=== PATIENT | male | born 1965 | race Caucasian/White ===

== ENCOUNTER 2017-06-23 16:55 | Observation (INO) | payer BC ==
[2017-06-23] MEDS ORDERED: Nitroglycerin 0.4 MG Tab.SL SL ONE (17:04)
[2017-06-23] MEDS ORDERED: Sodium Chloride 0.9% 10 ML Syringe FLUSH PRN (17:04)
[2017-06-23] MEDS ORDERED: Sodium Chloride 0.9% 2.5 ML Syringe FLUSH PRN (17:04)
[2017-06-23] MEDS ORDERED: Aspirin 81 MG Tab.Chew PO ONE (17:04)
--- NOTE | 2017-06-23 17:24 | EDM.PDOC ---
ED HPI GENERAL MEDICAL PROBLEM - General Chief Complaint: Chest Pain Stated Complaint: CHEST PAIN/RT ARM NUMB Time Seen by Provider: 06/23/17 17:12 Source of Information: Reports: Patient History Limitations: Reports: No Limitations - History of Present Illness INITIAL COMMENTS - FREE TEXT/NARRATIVE: HISTORY AND PHYSICAL: History of present illness: [Patient comes to the emergency room complaining of pain in his left chest, neck and shoulder. Started around 2:30pm today when he was doing chores. He describes it as an aching and a pressure sensation in his chest. Pain radiates into his left neck and shoulder, and comes and goes.. Was 3/10 when it started and is now 1/10 on the pain scale. Has a history of type 2 diabetes and CHF. He takes his medications regularly. Was ill with an upper respiratory infection about 2 weeks ago and was prescribed a Zithromax Z-Reynold and albuterol inhaler. He feels as though these symptoms have improved significantly. He's been using his albuterol inhaler regularly but is not helping his current symptoms. He's noticed a 22 pound weight gain over the past 3 weeks which he cannot attribute diet. He's noticed most of his weight gain in his abdomen. No fever or chills. Has heard a wheezing sound in his chest. He's had coughing recently with white to yellow colored sputum. No abdominal pain change in his appetite nausea or vomiting. No constipation or diarrhea. He is otherwise feeling well. He smokes 7-8 cigarettes per day and has for many years. Review of systems: As per history of present illness and below otherwise all systems reviewed and negative. Past medical history: As per history of present illness and as reviewed below otherwise noncontributory. Surgical history: As per history of present illness and as reviewed below otherwise noncontributory. Social history: No reported history of drug or alcohol abuse. Family history: As per history of present illness and as reviewed below otherwise noncontributory. Physical exam: Gen.: Well-developed well-nourished male in no acute distress. Vital signs are reviewed by me. O2 sat 88% on room air. Improves with 2 L per nasal cannula. HEENT: Atraumatic, normocephalic. Oral mucous membranes are pink and moist. PERRLA. Lungs: Wheezing and rales heard throughout anterior and posterior lower lung bases. breath sounds equal bilaterally. Heart: S1S2, regular rate and rhythm. No S3. No clicks, rubs, murmurs. Abdomen: Abdomen is distended. Bowel sounds are normoactive throughout. Soft, nontender. Negative for masses, guarding or rebound. Negative for costovertebral tenderness. Pelvis: Stable nontender. Genitourinary: Deferred. Rectal: Deferred. Extremities: Atraumatic, no significant ankle or lower leg edema. No calf pain. Neurovascular unremarkable. Neuro: Awake, alert, oriented. Motor and sensory unremarkable throughout. Exam nonfocal. Diagnostics: [CBC, CMP, BNP, urinalysis, troponin, INR/PTT/PT, EKG] Therapeutics: [Nitroglycerin 0.4 mg 1, aspirin 324 mg by mouth] Impression: [Chest pain] Plan: [Chest x-ray shows no abnormalities. BNP is 81. Troponin is normal. EKG shows bigeminy. His chest pain resolves with one tablet of nitroglycerin. Patient's condition is discussed with Dr. Vincenzo Glass who agrees to accept patient for observation and chest pain work up. ] Definitive disposition and diagnosis as appropriate pending reevaluation and review of above. chest Pain Score (Numeric/FACES): 3 - Related Data Allergies Allergy/AdvReac Type Severity Reaction Status Date / Time No Known Allergies Allergy Verified 06/23/17 17:09 Home Meds: Home Meds Canagliflozin [Invokana] 300 mg PO DAILY 11/15/15 [History] Furosemide [Lasix] 40 mg PO DAILY 11/15/15 [History] Glimepiride [Amaryl] 2 mg PO DAILY 11/15/15 [History] Lisinopril [Prinivil] 20 mg PO DAILY 11/15/15 [History] Simvastatin [Zocor] 20 mg PO ONETIME 11/15/15 [History] Spironolactone [Aldactone] 25 mg PO DAILY 11/15/15 [History] metFORMIN HCl [Metformin HCl] 500 mg PO BID 11/15/15 [History] Exenatide Microspheres [Bydureon] 06/23/17 [History] Past Medical History HEENT History: Reports: Impaired Vision Cardiovascular History: Reports: High Cholesterol, Heart Failure, Hypertension, [place] Respiratory History: Reports: None Gastrointestinal History: Reports: None Genitourinary History: Reports: None Musculoskeletal History: Reports: None Neurological History: Reports: None Psychiatric History: Reports: None Endocrine/Metabolic History: Reports: Diabetes, Type II, Obesity/BMI 30+ Hematologic History: Reports: None Immunologic History: Reports: None Oncologic (Cancer) History: Reports: None Dermatologic History: Reports: None - Infectious Disease History Infectious Disease History: Reports: None - Past Surgical History Male Surgical History: Reports: Penile Surgery Musculoskeletal Surgical History: Reports: Arthroscopic Knee Social & Family History - Family History Family Medical History: Noncontributory - Tobacco Use Smoking Status *Q: Current Every Day Smoker Years of Tobacco use: 30 Packs/Tins Daily: 1 - Recreational Drug Use Recreational Drug Use: No ED ROS GENERAL - Review of Systems Review Of Systems: ROS reveals no pertinent complaints other than HPI. ED EXAM, GENERAL - Physical Exam Exam: See Below Course - Vital Signs Last Recorded V/S: Last Vital Signs Temp 98.9 F 06/23/17 19:07 Pulse 49 L 06/23/17 19:07 Resp 18 06/23/17 19:07 BP 139/68 06/23/17 19:07 Pulse Ox 93 L 06/23/17 19:07 - Orders/Labs/Meds Orders: Active Orders 24 hr Category Date Time Status Patient Status [ADT] Stat ADT 06/23/17 18:35 Active Chest 1V Frontal [CR] Stat Exams 06/23/17 17:04 Taken Sodium Chloride 0.9% [Saline Flush] Med 06/23/17 17:04 Active 10 ml FLUSH ASDIRECTED PRN Sodium Chloride 0.9% [Saline Flush] Med 06/23/17 17:04 Active 2.5 ml FLUSH ASDIRECTED PRN Saline Lock Insert [OM.PC] Stat Oth 06/23/17 17:04 Ordered Medication Orders Sodium Chloride (Saline Flush) 10 ml FLUSH ASDIRECTED PRN PRN Reason: Keep Vein Open Last Admin: 06/23/17 17:12 Dose: 10 ml Sodium Chloride (Saline Flush) 2.5 ml FLUSH ASDIRECTED PRN PRN Reason: Keep Vein Open Last Admin: 06/23/17 17:12 Dose: 2.5 ml Labs: Laboratory Tests 06/23/17 06/23/17 06/23/17 Range/Units 17:03 17:03 17:03 WBC 8.37 (4.0-11.0) K/uL RBC 5.28 (4.50-5.90) M/uL Hgb 16.9 (13.0-17.0) g/dL Hct 52.0 H (38.0-50.0) % MCV 98.5 H (80.0-98.0) fL MCH 32.0 (27.0-32.0) pg MCHC 32.5 (31.0-37.0) g/dL RDW Std Deviation 50.0 (28.0-62.0) fl RDW Coeff of Sally 14 (11.0-15.0) % Plt Count 168 (150-400) K/uL MPV 9.70 (7.40-12.00) fL Neut % (Auto) 54.8 (48.0-80.0) % Lymph % (Auto) 33.2 (16.0-40.0) % Jerome % (Auto) 9.0 (0.0-15.0) % Eos % (Auto) 2.4 (0.0-7.0) % Baso % (Auto) 0.6 (0.0-1.5) % Neut # (Auto) 4.6 (1.4-5.7) K/uL Lymph # (Auto) 2.8 H (0.6-2.4) K/uL Jerome # (Auto) 0.8 (0.0-0.8) K/uL Eos # (Auto) 0.2 (0.0-0.7) K/uL Baso # (Auto) 0.1 (0.0-0.1) K/uL Nucleated RBC % 0.0 /100WBC Nucleated RBCs # 0 K/uL INR 0.93 (0.86-1.11) Sodium 137 (136-146) mmol/L Potassium 4.5 (3.5-5.1) mmol/L Chloride 98 (98-110) mmol/L Carbon Dioxide 26 (21-31) mmol/L BUN 22 (6.0-23.0) mg/dL Creatinine 1.0 (0.6-1.5) mg/dL Est Cr Clr Drug Dosing 90.24 mL/min Estimated GFR (MDRD) > 60.0 ml/min Glucose 212 H (60-110) mg/dL Calcium 9.1 (8.8-10.8) mg/dL Total Bilirubin 0.3 (0.1-1.5) mg/dL AST 23 (5-40) IU/L ALT 33 (8-54) IU/L Alkaline Phosphatase 56 (40-150) Troponin I < 0.10 (0.0-0.29) NG/ML B-Natriuretic Peptide (<100) PG/ML Total Protein 7.2 (6.0-8.0) g/dL Albumin 4.1 (3.5-5.0) g/dL Globulin 3.1 (2.0-3.5) g/dL Albumin/Globulin Ratio 1.3 (1.3-2.8) Urine Color Urine Appearance Urine pH (5.0-8.0) Ur Specific [place] (1.001-1.035) Urine Protein (NEGATIVE) mg/dL Urine Glucose (UA) (NEGATIVE) mg/dL Urine Ketones (NEGATIVE) mg/dL Urine Occult Blood (NEGATIVE) Urine Nitrite (NEGATIVE) Urine Bilirubin (NEGATIVE) Urine Urobilinogen (<2.0) EU/dL Ur Leukocyte Esterase (NEGATIVE) Urine RBC (0-2/HPF) Urine WBC (0-5/HPF) Ur Epithelial Cells (NONE-FEW) Urine Bacteria (NEGATIVE) 06/23/17 06/23/17 Range/Units 17:03 17:50 WBC (4.0-11.0) K/uL RBC (4.50-5.90) M/uL Hgb (13.0-17.0) g/dL Hct (38.0-50.0) % MCV (80.0-98.0) fL MCH (27.0-32.0) pg MCHC (31.0-37.0) g/dL RDW Std Deviation (28.0-62.0) fl RDW Coeff of Sally (11.0-15.0) % Plt Count (150-400) K/uL MPV (7.40-12.00) fL Neut % (Auto) (48.0-80.0) % Lymph % (Auto) (16.0-40.0) % Jerome % (Auto) (0.0-15.0) % Eos % (Auto) (0.0-7.0) % Baso % (Auto) (0.0-1.5) % Neut # (Auto) (1.4-5.7) K/uL Lymph # (Auto) (0.6-2.4) K/uL Jerome # (Auto) (0.0-0.8) K/uL Eos # (Auto) (0.0-0.7) K/uL Baso # (Auto) (0.0-0.1) K/uL Nucleated RBC % /100WBC Nucleated RBCs # K/uL INR (0.86-1.11) Sodium (136-146) mmol/L Potassium (3.5-5.1) mmol/L Chloride (98-110) mmol/L Carbon Dioxide (21-31) mmol/L BUN (6.0-23.0) mg/dL Creatinine (0.6-1.5) mg/dL Est Cr Clr Drug Dosing mL/min Estimated GFR (MDRD) ml/min Glucose (60-110) mg/dL Calcium (8.8-10.8) mg/dL Total Bilirubin (0.1-1.5) mg/dL AST (5-40) IU/L ALT (8-54) IU/L Alkaline Phosphatase (40-150) Troponin I (0.0-0.29) NG/ML B-Natriuretic Peptide 81 (<100) PG/ML Total Protein (6.0-8.0) g/dL Albumin (3.5-5.0) g/dL Globulin (2.0-3.5) g/dL Albumin/Globulin Ratio (1.3-2.8) Urine Color YELLOW Urine Appearance CLEAR Urine pH 6.0 (5.0-8.0) Ur Specific [place] 1.015 (1.001-1.035) Urine Protein NEGATIVE (NEGATIVE) mg/dL Urine Glucose (UA) >=1000 (NEGATIVE) mg/dL Urine Ketones NEGATIVE (NEGATIVE) mg/dL Urine Occult Blood NEGATIVE (NEGATIVE) Urine Nitrite NEGATIVE (NEGATIVE) Urine Bilirubin NEGATIVE (NEGATIVE) Urine Urobilinogen 0.2 (<2.0) EU/dL Ur Leukocyte Esterase NEGATIVE (NEGATIVE) Urine RBC NONE SEEN (0-2/HPF) Urine WBC NONE SEEN (0-5/HPF) Ur Epithelial Cells NOT SEEN (NONE-FEW) Urine Bacteria RARE (NEGATIVE) Meds: Medications Generic Name Dose Route Start Last Admin Trade Name Marquise PRN Reason Stop Dose Admin Sodium Chloride 10 ml 06/23/17 17:04 06/23/17 17:12 Saline Flush FLUSH 10 ml ASDIRECTED PRN Administration Keep Vein Open Sodium Chloride 2.5 ml 06/23/17 17:04 06/23/17 17:12 Saline Flush FLUSH 2.5 ml ASDIRECTED PRN Administration Keep Vein Open Discontinued Medications Generic Name Dose Route Start Last Admin Trade Name Marquise PRN Reason Stop Dose Admin Aspirin 324 mg 06/23/17 17:04 06/23/17 17:12 Aspirin PO 06/23/17 17:05 324 mg ONETIME ONE Administration Furosemide 40 mg 06/23/17 18:35 06/23/17 18:41 Lasix IVPUSH 06/23/17 18:36 40 mg NOW ONE Administration Nitroglycerin 0.4 mg 06/23/17 17:04 06/23/17 17:11 Nitrostat SL 06/23/17 17:05 0.4 mg ONETIME ONE Administration Departure - Departure Time of Disposition: 18:35 Disposition: Refer to Observation Condition: Good Clinical Impression: Chest pain - My Orders Last 24 Hours: My Active Orders 06/23/17 17:04 Chest 1V Frontal [CR] Stat Sodium Chloride 0.9% [Saline Flush] 10 ml FLUSH ASDIRECTED PRN Sodium Chloride 0.9% [Saline Flush] 2.5 ml FLUSH ASDIRECTED PRN Saline Lock Insert [OM.PC] Stat 06/23/17 18:35 Patient Status [ADT] Stat - Assessment/Plan Last 24 Hours: My Active Orders 06/23/17 17:04 Chest 1V Frontal [CR] Stat Sodium Chloride 0.9% [Saline Flush] 10 ml FLUSH ASDIRECTED PRN Sodium Chloride 0.9% [Saline Flush] 2.5 ml FLUSH ASDIRECTED PRN Saline Lock Insert [OM.PC] Stat 06/23/17 18:35 Patient Status [ADT] Stat
[2017-06-23 17:52] LABS: CHLORIDE,CL 98 mmol/L (98-110); SODIUM,NA 137 mmol/L (136-146)
[2017-06-23] MEDS ORDERED: Furosemide 40 MG/4 ML VIAL IVPUSH ONE (18:35)
[2017-06-23] MEDS ORDERED: Morphine 2 MG/ML Syringe IVPUSH PRN (21:30)
[2017-06-23] MEDS ORDERED: Acetaminophen 325 MG Tab PO PRN (21:31)
--- NOTE | 2017-06-23 23:26 | PCM.HP ---
H&P History of Present Illness - History of Present Illness Initial Comments - Free Text/Narative: 51 yo male who presents with a week history of shortness of breath, cough productive of white sputum, orthopnea and a 22 lb weight gain. Patient feels bloated in the abdomen but has been alternating between diarrhea and constipation. He was treated for respiratory infection last week with azithromycin. He denies any fevers or chills. Today he reported chest pressure. He has a history of CHF and the symptoms he is experiencing now is how he felt when he was first diagnosed with CHF. He reported chest pressure that radiated to his arm which lasted all day today but has resolved since admission. chest Pain Score (Numeric/FACES): 3 - Related Data Allergies/Adverse Reactions: Allergies Allergy/AdvReac Type Severity Reaction Status Date / Time No Known Allergies Allergy Verified 06/23/17 21:48 Home Medications: Home Meds Canagliflozin [Invokana] 300 mg PO DAILY 11/15/15 [History] Glimepiride [Amaryl] 2 mg PO BID 11/15/15 [History] Lisinopril [Prinivil] 20 mg PO DAILY 11/15/15 [History] Simvastatin [Zocor] 20 mg PO DAILY 11/15/15 [History] Spironolactone [Aldactone] 25 mg PO DAILY 11/15/15 [History] metFORMIN HCl [Metformin HCl] 500 mg PO BID 11/15/15 [History] Exenatide Microspheres [Bydureon] 06/23/17 [History] Furosemide [Lasix] 40 mg PO BID #0 tablet 06/24/17 [Rx] Past Medical History HEENT History: Reports: Impaired Vision Cardiovascular History: Reports: High Cholesterol, Heart Failure, Hypertension, [place] Respiratory History: Reports: None Gastrointestinal History: Reports: None Genitourinary History: Reports: None Musculoskeletal History: Reports: None Neurological History: Reports: None Psychiatric History: Reports: None Endocrine/Metabolic History: Reports: Diabetes, Type II, Obesity/BMI 30+ Hematologic History: Reports: None Immunologic History: Reports: None Oncologic (Cancer) History: Reports: None Dermatologic History: Reports: None - Infectious Disease History Infectious Disease History: Reports: None - Past Surgical History Male Surgical History: Reports: Penile Surgery Musculoskeletal Surgical History: Reports: Arthroscopic Knee Social & Family History - Family History Family Medical History: Noncontributory - Tobacco Use Smoking Status *Q: Current Every Day Smoker Years of Tobacco use: 30 Packs/Tins Daily: 1 - Recreational Drug Use Recreational Drug Use: No H&P Review of Systems - Review of Systems: Review Of Systems: ROS reveals no pertinent complaints other than HPI. Exam - Exam Exam: See Below - Vital Signs Vital Signs: Last Vital Signs Temp 37.2 C 06/23/17 19:07 Pulse 49 L 06/23/17 19:07 Resp 18 06/23/17 19:07 BP 139/68 06/23/17 19:07 Pulse Ox 93 L 06/23/17 19:07 Weight: 122.198 kg - Exam General: Alert, Oriented HEENT: Mucosa Moist & [place] Neck: JVD Lungs: Clear to Auscultation, Normal Respiratory Effort Cardiovascular: Regular Rate, Regular Rhythm GI/Abdominal Exam: Soft, Non-Tender Extremities: No Pedal Edema Skin: Warm, Dry, Intact - Patient Data Result Diagrams: 06/24/17 05:00 06/24/17 05:00 *Q Meaningful Use (ADM) - VTE *Q VTE Criteria *Q: - Stroke *Q Stroke Criteria *Q: - AMI *Q AMI Criteria *Q: Problem List Initiated/Reviewed/Updated: Yes Orders Last 24hrs: Active Orders 24 hr Category Date Time Status Blood Glucose Check, Bedside [RC] TIDAC Care 06/24/17 07:00 Active Telemetry Monitoring [Cardiac Monitoring] [RC] . Care 06/23/17 19:20 Active DIRECTED [place] [employer] Diet [DIET] Diet 06/24/17 Breakfast Active TROPONIN I [CHEM] Q6H Lab 06/23/17 22:51 Received TROPONIN I [CHEM] Q6H Lab 06/24/17 05:00 Ordered Acetaminophen [Tylenol] Med 06/23/17 21:31 Active 650 mg PO Q6H PRN Canagliflozin [Invokana] Med 06/24/17 09:00 Active 300 mg PO DAILY Furosemide [Lasix] Med 06/24/17 09:00 Active 40 mg PO DAILY Glimepiride [Amaryl] Med 06/24/17 08:00 Active 2 mg PO BIDMEALS Insulin Aspart [NovoLOG] Med 06/24/17 07:30 Active See Protocol SUBCUT TIDAC Lisinopril [Prinivil] Med 06/24/17 09:00 Active 20 mg PO DAILY Morphine Med 06/23/17 21:30 Active 2 mg IVPUSH Q3H PRN Simvastatin [Zocor] Med 06/24/17 21:00 Active 20 mg PO DAILY Spironolactone [Aldactone] Med 06/24/17 09:00 Active 25 mg PO DAILY metFORMIN [Glucophage] Med 06/24/17 08:00 Active 500 mg PO BIDMEALS Medication Orders Acetaminophen (Tylenol) 650 mg PO Q6H PRN PRN Reason: Pain Furosemide (Lasix) 40 mg PO DAILY [facility] Glimepiride (Amaryl) 2 mg PO BIDMEALS [facility] Insulin Aspart (Novolog) 0 unit SUBCUT TIDAC [facility] PRN Reason: Protocol Lisinopril (Prinivil) 20 mg PO DAILY [facility] Metformin HCl (Glucophage) 500 mg PO BIDMEALS [facility] Morphine Sulfate (Morphine) 2 mg IVPUSH Q3H PRN PRN Reason: Pain (severe 7-10) Non-Formulary Medication (Canagliflozin [Invokana]) 300 mg PO DAILY [facility] Simvastatin (Zocor) 20 mg PO DAILY [facility] Sodium Chloride (Saline Flush) 10 ml FLUSH ASDIRECTED PRN PRN Reason: Keep Vein Open Last Admin: 06/23/17 17:12 Dose: 10 ml Sodium Chloride (Saline Flush) 2.5 ml FLUSH ASDIRECTED PRN PRN Reason: Keep Vein Open Last Admin: 06/23/17 17:12 Dose: 2.5 ml Spironolactone (Aldactone) 25 mg PO DAILY [facility] Assessment/Plan Comment:: 51 yo male admitted with CHF exacerbation. He ruled out for acute coronary syndrome with seral negative cardiac enzymes. He was watched overnight on telemetry with no events. He was given 40mg IV of lasix with improvement of his breath. This morning he is satting 91% on room air and is requesting discharge home. He was advised to increase his lasix to 40 BID dosing for the next week and to follow up with Dr. Ovalles regarding treatment of his congestive heart failure and need for repeat echocardiogram.
[2017-06-24] MEDS ORDERED: FLU Vacc QS 2017-18 (36mos UP)/PF 60 MCG/0.5 ML Syringe IM ONE (00:15)
[2017-06-24 06:08] LABS: CHLORIDE,CL 96 mmol/L (98-110); SODIUM,NA 139 mmol/L (136-146)
[2017-06-24] MEDS: Insulin Aspart 100 Units/ML 3 ML Pen SUBCUT SCH ×2 (06:47→13:11)
[2017-06-24] MEDS ORDERED: metFORMIN 500 MG Tab PO SCH (08:00)
[2017-06-24] MEDS ORDERED: Glimepiride 2 MG Tab PO SCH (08:00)
[2017-06-24] MEDS ORDERED: Non-Formulary Medication 1 Each (Metformin Hcl [Metformin Hcl] 500 MG) PO SCH (08:00)
[2017-06-24] MEDS ORDERED: Enoxaparin 40 MG/0.4 ML Syringe SUBCUT SCH (09:00)
[2017-06-24] MEDS ORDERED: Lisinopril 10 MG Tab PO SCH ×2 (09:00)
[2017-06-24] MEDS ORDERED: Spironolactone 25 MG Tab PO SCH (09:00)
[2017-06-24] MEDS ORDERED: Furosemide 40 MG Tab PO SCH (09:00)
[2017-06-24] MEDS ORDERED: Non-Formulary Medication 1 Each (Canagliflozin [Invokana] 300 MG) PO SCH (09:00)
[2017-06-24 12:06] VITALS: BP 112/71
[2017-06-24] MEDS ORDERED: Simvastatin 20 MG Tab PO SCH (21:00)
--- NOTE | 2017-06-25 18:19 | CR ---
EXAM DATE: 06/23/17 PATIENT'S AGE: 51 Patient: FREYA TEJEDA Facility: [place], [place] Site . Site : [id number] Study: XRay Chest [id number]/[id number] 5:35:42 PM Ordering Physician: Doctor Oliveira Final Report: HISTORY: Chest pain. TECHNIQUE: Portable frontal view of the chest. COMPARISON: Chest x-ray 08/06/2015. FINDINGS: No airspace consolidation. No pleural effusion or pneumothorax. Pulmonary vasculature is within normal limits. Cardiomediastinal silhouette is within normal limits for technique. IMPRESSION: No acute findings. Dictated by Bradley Rosario MD @ Jun 23 2017 5:59PM (Electronic Signature) Report Signed by Proxy. CHESTER
== END 2017-06-24 15:45 | disposition home or self-care (01) ==
LOC: MW.ED 16:55 → MW.MS 18:59
PROVIDERS: ADMIT Internal Medicine; ATTEND Internal Medicine
DX: I11.0 Hypertensive heart disease with heart failure (principal); I50.9 Heart failure, unspecified; E78.00 Pure hypercholesterolemia, unspecified; I25.2 Old myocardial infarction; E11.9 Type 2 diabetes mellitus without complications; E66.9 Obesity, unspecified; F17.210 Nicotine dependence, cigarettes, uncomplicated; Z79.899 Other long term (current) drug therapy; Z79.84 Long term (current) use of oral hypoglycemic drugs; Z68.30 Body mass index [BMI] 30.0-30.9, adult
CPT/HCPCS: 36415; 71045; 80048; 80053; 81001; 82962; 83880; 84484; 85025; 85027; 85610; 87804; 90686; 93005; 96374; 99285; A9270; J1650; J1940; 96372; 99284; G0008; G0378

== ENCOUNTER 2018-10-31 14:57 | Inpatient (IN) | payer BC ==
--- NOTE | 2018-10-31 15:30 | CR ---
EXAMINATION: Two-view chest (PA and Lateral views). HISTORY: Failure. FINDINGS: The trachea is midline. The cardiomediastinal silhouette is within normal limits. There is a subtle miliary nodular appearance bilaterally. No focal consolidation or pleural effusion. Osseous structures appear unremarkable. IMPRESSION: 1. Subtle miliary nodular appearance bilaterally. May be the result of previous varicella/viral pneumonia versus other atypical miliary infection.
[2018-10-31 15:51] LABS: CHLORIDE,CL 84 mmol/L (98-107); SODIUM,NA 126 mmol/L (136-148)
--- NOTE | 2018-10-31 17:40 | PCM.HP ---
H&P History of Present Illness - General Date of Service: 10/31/18 Admit Problem/Dx: Hyperglycemia, hypoxemia Source of Information: Patient History Limitations: Reports: No Limitations - History of Present Illness Initial Comments - Free Text/Narative: The patient is a 52-year-old gentleman who had been admitted to direct hospitalization from his primary care physician office. Out of concern for worsening blood sugars. Patient has had type 2 diabetes and has been on oral medications for at least 10 years. The patient reports that he has had increasing fatigue. Patient also further reports that he has been having increasing dryness of his mouth and increasing urination. The patient also has a history of hypoxemia and hypertension. Upon presentation the patient was noted to be hypoxic at 84% well on room air. The patient says that he has had increasing shortness of breath as well. The patient has been an issue she'll state of health. Onset of Symptoms: Reports: Gradual Duration of Symptoms: Reports: Day(s): Location: Reports: Chest Severity: Mild Improves with: Reports: None Worsens with: Reports: None Associated Symptoms: Denies: Cough - Related Data Allergies/Adverse Reactions: Allergies Allergy/AdvReac Type Severity Reaction Status Date / Time No Known Allergies Allergy Verified 06/23/17 21:48 Home Medications: Home Meds Glimepiride [Amaryl] 2 mg PO BID 11/15/15 [History] Lisinopril [Prinivil] 20 mg PO DAILY 11/15/15 [History] Simvastatin [Zocor] 20 mg PO BEDTIME 11/15/15 [History] Spironolactone [Aldactone] 25 mg PO DAILY 11/15/15 [History] metFORMIN HCl [Metformin HCl] 1 tab PO BID 11/15/15 [History] Albuterol Sulfate [Proair Hfa] 1 puff INH Q4HR PRN 10/31/18 [History] Aspirin [Lo-Dose Aspirin EC] 81 mg PO DAILY 10/31/18 [History] Cyanocobalamin (Vitamin B-12) [Vitamin B-12] 1 tab PO DAILY 10/31/18 [History] Dulaglutide [Trulicity] 1.5 mg WEEKLY 10/31/18 [History] Furosemide [Lasix] 1 - 2 tab PO DAILY 10/31/18 [History] Past Medical History HEENT History: Reports: Impaired Vision Cardiovascular History: Reports: High Cholesterol, Heart Failure, Hypertension, [place] Respiratory History: Reports: Bronchitis, Recurrent, Pneumonia, Recurrent Gastrointestinal History: Reports: None Genitourinary History: Reports: None Musculoskeletal History: Reports: None Neurological History: Reports: None Psychiatric History: Reports: None Endocrine/Metabolic History: Reports: Diabetes, Type II, Obesity/BMI 30+ Hematologic History: Reports: None Immunologic History: Reports: None Oncologic (Cancer) History: Reports: None Dermatologic History: Reports: None - Infectious Disease History Infectious Disease History: Reports: None - Past Surgical History Head Surgeries/Procedures: Reports: None Respiratory Surgical History: Reports: None Male Surgical History: Reports: Penile Surgery Musculoskeletal Surgical History: Reports: Arthroscopic Knee, Shoulder Surgery Social & Family History - Family History Family Medical History: Noncontributory - Tobacco Use Smoking Status *Q: Never Smoker Second Hand Smoke Exposure: No - Caffeine Use Caffeine Use: Reports: Coffee - Recreational Drug Use Recreational Drug Use: No - Living Situation & Occupation Living situation: Reports: Occupation: Employed H&P Review of Systems - Review of Systems: Review Of Systems: See Below General: Reports: Weakness, Fatigue HEENT: Reports: No Symptoms Pulmonary: Reports: Shortness of Breath Cardiovascular: Reports: No Symptoms Gastrointestinal: Reports: No Symptoms Genitourinary: Reports: Frequency Musculoskeletal: Reports: Leg Pain Skin: Reports: No Symptoms Psychiatric: Reports: No Symptoms Neurological: Reports: No Symptoms Hematologic/Lymphatic: Reports: No Symptoms Immunologic: Reports: No Symptoms Exam - Exam Exam: See Below - Vital Signs Weight: 118.161 kg - Exam Quality Assessment: Supplemental Oxygen General: Alert (Obese), Oriented, Cooperative HEENT: Conjunctiva Clear, EACs Clear, EOMI (Heterochromia). No: Mucosa Moist & Catarina (Dry) Neck: Supple, Trachea Midline Lungs: Clear to Auscultation, Normal Respiratory Effort Cardiovascular: Regular Rate, Regular Rhythm GI/Abdominal Exam: Normal Bowel Sounds, Soft, No Distention. No: Guarding, Rigid, Rebound Back Exam: Normal Inspection, Full Range of Motion Extremities: Normal Inspection, Normal Range of Motion, No Pedal Edema Skin: Warm, Dry, Intact, Wound (Multiple bruises, wounds to lower legs.) Neurological: Cranial Nerves Intact Neuro Extensive - Mental Status: Alert, Oriented x3 Neuro Extensive - Motor, Sensory, Reflexes: CN II-XII Intact Psychiatric: Alert, Normal Affect, Normal Mood - Patient Data Lab Results Last 24 hrs: Laboratory Results - last 24 hr 10/31/18 10/31/18 10/31/18 Range/Units 15:07 15:07 15:07 WBC 10.41 (4.0-11.0) K/uL RBC 5.84 (4.50-5.90) M/uL Hgb 19.3 H (13.0-17.0) g/dL Hct 57.0 H (38.0-50.0) % MCV 97.6 (80.0-98.0) fL MCH 33.0 H (27.0-32.0) pg MCHC 33.9 (31.0-37.0) g/dL RDW Std Deviation 54.1 (28.0-62.0) fl RDW Coeff of Sally 15 (11.0-15.0) % Plt Count 160 (150-400) K/uL MPV 10.20 (7.40-12.00) fL Neut % (Auto) 71.4 (48.0-80.0) % Lymph % (Auto) 17.3 (16.0-40.0) % [place] % (Auto) 9.9 (0.0-15.0) % Eos % (Auto) 1.1 (0.0-7.0) % Baso % (Auto) 0.3 (0.0-1.5) % Neut # (Auto) 7.4 H (1.4-5.7) K/uL Lymph # (Auto) 1.8 (0.6-2.4) K/uL [place] # (Auto) 1.0 H (0.0-0.8) K/uL Eos # (Auto) 0.1 (0.0-0.7) K/uL Baso # (Auto) 0.0 (0.0-0.1) K/uL Nucleated RBC % 0.3 /100WBC Nucleated RBCs # 0 K/uL D-Dimer, Quantitative 0.43 (0.0-0.50) mg/L FEU Sodium 126 L (136-148) mmol/L Potassium 4.3 (3.5-5.1) mmol/L Chloride 84 L (98-107) mmol/L Carbon Dioxide 36.5 H (21.0-32.0) mmol/L BUN 40 H (7.0-18.0) mg/dL Creatinine 1.4 H (0.8-1.3) mg/dL Est Cr Clr Drug Dosing TNP Estimated GFR (MDRD) 53.2 ml/min Glucose 342 H (74-106) mg/dL Calcium 9.9 (8.5-10.1) mg/dL Total Bilirubin 0.8 (0.2-1.0) mg/dL AST 20 (15-37) IU/L ALT 56 (14-63) IU/L Alkaline Phosphatase 75 (46-116) U/L Troponin I < 0.050 (0.000-0.056) ng/mL B-Natriuretic Peptide (<100) PG/ML Total Protein 7.3 (6.4-8.2) g/dL Albumin 3.6 (3.4-5.0) g/dL Globulin 3.7 (2.6-4.0) g/dL Albumin/Globulin Ratio 1.0 (0.9-1.6) TSH 3rd Generation 1.70 (0.36-3.74) uIU/mL 10/31/18 Range/Units 15:07 WBC (4.0-11.0) K/uL RBC (4.50-5.90) M/uL Hgb (13.0-17.0) g/dL Hct (38.0-50.0) % MCV (80.0-98.0) fL MCH (27.0-32.0) pg MCHC (31.0-37.0) g/dL RDW Std Deviation (28.0-62.0) fl RDW Coeff of Sally (11.0-15.0) % Plt Count (150-400) K/uL MPV (7.40-12.00) fL Neut % (Auto) (48.0-80.0) % Lymph % (Auto) (16.0-40.0) % [place] % (Auto) (0.0-15.0) % Eos % (Auto) (0.0-7.0) % Baso % (Auto) (0.0-1.5) % Neut # (Auto) (1.4-5.7) K/uL Lymph # (Auto) (0.6-2.4) K/uL [place] # (Auto) (0.0-0.8) K/uL Eos # (Auto) (0.0-0.7) K/uL Baso # (Auto) (0.0-0.1) K/uL Nucleated RBC % /100WBC Nucleated RBCs # K/uL D-Dimer, Quantitative (0.0-0.50) mg/L FEU Sodium (136-148) mmol/L Potassium (3.5-5.1) mmol/L Chloride (98-107) mmol/L Carbon Dioxide (21.0-32.0) mmol/L BUN (7.0-18.0) mg/dL Creatinine (0.8-1.3) mg/dL Est Cr Clr Drug Dosing Estimated GFR (MDRD) ml/min Glucose (74-106) mg/dL Calcium (8.5-10.1) mg/dL Total Bilirubin (0.2-1.0) mg/dL AST (15-37) IU/L ALT (14-63) IU/L Alkaline Phosphatase (46-116) U/L Troponin I (0.000-0.056) ng/mL B-Natriuretic Peptide 127 H (<100) PG/ML Total Protein (6.4-8.2) g/dL Albumin (3.4-5.0) g/dL Globulin (2.6-4.0) g/dL Albumin/Globulin Ratio (0.9-1.6) TSH 3rd Generation (0.36-3.74) uIU/mL Result Diagrams: 10/31/18 15:07 10/31/18 15:07 - Problem List (1) Hypoxemia SNOMED Code(s): 009965738 ICD Code: R09.02 - HYPOXEMIA Status: Acute Priority: High Current Visit : Yes (2) Diabetes mellitus type 2, uncontrolled SNOMED Code(s): 127272992, 810528496 ICD Code: E11.65 - TYPE 2 DIABETES MELLITUS WITH HYPERGLYCEMIA Status: Chronic Priority: High Current Visit: Yes Qualifiers: Glycemic state: with hyperglycemia Qualified Code(s): E11.65 - Type 2 diabetes mellitus with hyperglycemia (3) Morbid obesity SNOMED Code(s): 563434427 ICD Code: E66.01 - MORBID (SEVERE) OBESITY DUE TO EXCESS CALORIES Status: Chronic Priority: Medium Current Visit: Yes (4) Hypoventilation associated with obesity SNOMED Code(s): 642538347 ICD Code: E66.2 - MORBID (SEVERE) OBESITY WITH ALVEOLAR HYPOVENTILATION Status: Chronic Priority: Medium Current Visit: Yes (5) Hypertension SNOMED Code(s): 67041773 ICD Code: I10 - ESSENTIAL (PRIMARY) HYPERTENSION Status: Chronic Priority : Medium Current Visit: Yes Qualifiers: Hypertension type: essential hypertension Qualified Code(s): I10 - Essential (primary) hypertension Problem List Initiated/Reviewed/Updated: Yes Orders Last 24hrs: Active Orders 24 hr Category Date Time Status EKG 12 Lead [EKG Documentation Completion] [RC] ROUTINE Care 10/31/18 16:03 Active Assessment/Plan Comment:: The patient is a 52-year-old gentleman who has essentially at this time uncontrolled diabetes. The patient has not responded according to his primary care physician to oral medications. I have referred the patient to chemical educator. The patient will also be kept on subcutaneous insulin while in hospital. The patient also had been noted to be hypoxic and this is likely in his case to be multifactorial. The patient will be kept on oxygen support to help keep his saturations above 92%. The patient will also be kept on appropriate ADA diet. He will be started on insulin sliding scale with Accu- Cheks before meals and at bedtime. The patient is currently on his home dose of Lasix. He'll have DVT prophylaxis with the use of heparin 5000 units subcutaneous every 8 hours. The patient will also be monitored for his hypertension and he has been started on his lisinopril 20 mg by mouth daily. The urinalysis is also been ordered. The patient does have minimally reduced EGFR at 53.2 mL/m. This will be monitored with repeat laboratory studies. The patient also has been encouraged to ambulate. Repeat laboratory studies have been ordered in the morning.
[2018-10-31] MEDS ORDERED: Albuterol 8 GM Inhaler INH PRN (17:44)
[2018-10-31] MEDS ORDERED: Albuterol/Ipratropium 3.0-0.5 MG/3 ML Neb Soln NEB PRN (18:13)
[2018-10-31] MEDS ORDERED: Ondansetron 4 MG Tab.DIS PO PRN (18:13)
[2018-10-31] MEDS ORDERED: Acetaminophen 325 MG Tab PO PRN (18:13)
[2018-10-31] MEDS ORDERED: oxyCODONE 5 MG Tab PO PRN (18:13)
[2018-10-31] MEDS ORDERED: Temazepam 15 MG Cap PO PRN (18:13)
[2018-10-31] MEDS: Sodium Chloride 0.9% 1,000 ML IV SCH (19:39)
[2018-10-31] MEDS: Heparin Sodium 5,000 Units/ML Vial SUBCUT SCH (19:39)
[2018-10-31] MEDS ORDERED: Insulin Aspart 100 Units/ML 3 ML Pen SUBCUT ONE (20:44)
[2018-10-31] MEDS: Glimepiride 2 MG Tab PO SCH (21:06)
[2018-10-31] MEDS: Simvastatin 20 MG Tab PO SCH (21:06)
[2018-11-01] MEDS: Heparin Sodium 5,000 Units/ML Vial SUBCUT SCH ×3 (02:17→18:22)
[2018-11-01] MEDS: Sodium Chloride 0.9% 1,000 ML IV SCH (03:35)
[2018-11-01 05:37] LABS: HEMOGLOBIN A1C 9.8 % (4.5-6.2)
[2018-11-01 05:46] LABS: CHLORIDE,CL 93 mmol/L (98-107); SODIUM,NA 133 mmol/L (136-148)
[2018-11-01] MEDS: Insulin Aspart 100 Units/ML 3 ML Pen SUBCUT SCH ×3 (07:57→17:36)
[2018-11-01] MEDS: Furosemide 40 MG Tab PO SCH (08:48)
[2018-11-01] MEDS ORDERED: Furosemide 40 MG/4 ML VIAL IVPUSH ONE ×2 (08:48→16:00)
[2018-11-01] MEDS: Glimepiride 2 MG Tab PO SCH ×2 (09:24→20:38)
[2018-11-01] MEDS: Lisinopril 10 MG Tab PO SCH (09:29)
--- NOTE | 2018-11-01 12:57 | PCM.PN ---
- General Info Date of Service: 11/01/18 Subjective Update: Endorses shortness of breath, frustrated with fluid overloaded status. No chest pain nausea or vomiting. Has no cough. - Review of Systems General: Reports: Other (see hpi) - Patient Data Vitals - Most Recent: Last Vital Signs Temp 36.1 C 11/01/18 07:15 Pulse 100 11/01/18 07:15 Resp 18 11/01/18 07:15 BP 114/72 11/01/18 09:29 Pulse Ox 93 L 11/01/18 07:15 Weight - Most Recent: 118.388 kg I&O - Last 24 Hours: Intake & Output 10/31/18 11/01/18 11/01/18 22:59 06:59 14:59 Intake Total 1599 Output Total 2050 Balance -451 Lab Results Last 24 Hours: Laboratory Results - last 24 hr 10/31/18 10/31/18 10/31/18 Range/Units 15:07 15:07 15:07 WBC 10.41 (4.0-11.0) K/uL RBC 5.84 (4.50-5.90) M/uL Hgb 19.3 H (13.0-17.0) g/dL Hct 57.0 H (38.0-50.0) % MCV 97.6 (80.0-98.0) fL MCH 33.0 H (27.0-32.0) pg MCHC 33.9 (31.0-37.0) g/dL RDW Std Deviation 54.1 (28.0-62.0) fl RDW Coeff of Sally 15 (11.0-15.0) % Plt Count 160 (150-400) K/uL MPV 10.20 (7.40-12.00) fL Neut % (Auto) 71.4 (48.0-80.0) % Lymph % (Auto) 17.3 (16.0-40.0) % [place] % (Auto) 9.9 (0.0-15.0) % Eos % (Auto) 1.1 (0.0-7.0) % Baso % (Auto) 0.3 (0.0-1.5) % Neut # (Auto) 7.4 H (1.4-5.7) K/uL Lymph # (Auto) 1.8 (0.6-2.4) K/uL [place] # (Auto) 1.0 H (0.0-0.8) K/uL Eos # (Auto) 0.1 (0.0-0.7) K/uL Baso # (Auto) 0.0 (0.0-0.1) K/uL Nucleated RBC % 0.3 /100WBC Nucleated RBCs # 0 K/uL D-Dimer, Quantitative 0.43 (0.0-0.50) mg/L FEU Sodium 126 L (136-148) mmol/L Potassium 4.3 (3.5-5.1) mmol/L Chloride 84 L (98-107) mmol/L Carbon Dioxide 36.5 H (21.0-32.0) mmol/L BUN 40 H (7.0-18.0) mg/dL Creatinine 1.4 H (0.8-1.3) mg/dL Est Cr Clr Drug Dosing TNP Estimated GFR (MDRD) 53.2 ml/min Glucose 342 H (74-106) mg/dL POC Glucose (60-110) mg/dL Hemoglobin A1c (4.5-6.2) % Calcium 9.9 (8.5-10.1) mg/dL Total Bilirubin 0.8 (0.2-1.0) mg/dL AST 20 (15-37) IU/L ALT 56 (14-63) IU/L Alkaline Phosphatase 75 (46-116) U/L Troponin I < 0.050 (0.000-0.056) ng/mL B-Natriuretic Peptide (<100) PG/ML Total Protein 7.3 (6.4-8.2) g/dL Albumin 3.6 (3.4-5.0) g/dL Globulin 3.7 (2.6-4.0) g/dL Albumin/Globulin Ratio 1.0 (0.9-1.6) TSH 3rd Generation 1.70 (0.36-3.74) uIU/mL Urine Color Urine Appearance Urine pH (5.0-8.0) Ur Specific [place] (1.001-1.035) Urine Protein (NEGATIVE) mg/dL Urine Glucose (UA) (NEGATIVE) mg/dL Urine Ketones (NEGATIVE) mg/dL Urine Occult Blood (NEGATIVE) Urine Nitrite (NEGATIVE) Urine Bilirubin (NEGATIVE) Urine Urobilinogen (<2.0) EU/dL Ur Leukocyte Esterase (NEGATIVE) Urine RBC (0-2/HPF) Urine WBC (0-5/HPF) Ur Epithelial Cells (NONE-FEW) Urine Bacteria (NEGATIVE) 10/31/18 10/31/18 10/31/18 Range/Units 15:07 17:33 20:41 WBC (4.0-11.0) K/uL RBC (4.50-5.90) M/uL Hgb (13.0-17.0) g/dL Hct (38.0-50.0) % MCV (80.0-98.0) fL MCH (27.0-32.0) pg MCHC (31.0-37.0) g/dL RDW Std Deviation (28.0-62.0) fl RDW Coeff of Sally (11.0-15.0) % Plt Count (150-400) K/uL MPV (7.40-12.00) fL Neut % (Auto) (48.0-80.0) % Lymph % (Auto) (16.0-40.0) % [place] % (Auto) (0.0-15.0) % Eos % (Auto) (0.0-7.0) % Baso % (Auto) (0.0-1.5) % Neut # (Auto) (1.4-5.7) K/uL Lymph # (Auto) (0.6-2.4) K/uL [place] # (Auto) (0.0-0.8) K/uL Eos # (Auto) (0.0-0.7) K/uL Baso # (Auto) (0.0-0.1) K/uL Nucleated RBC % /100WBC Nucleated RBCs # K/uL D-Dimer, Quantitative (0.0-0.50) mg/L FEU Sodium (136-148) mmol/L Potassium (3.5-5.1) mmol/L Chloride (98-107) mmol/L Carbon Dioxide (21.0-32.0) mmol/L BUN (7.0-18.0) mg/dL Creatinine (0.8-1.3) mg/dL Est Cr Clr Drug Dosing Estimated GFR (MDRD) ml/min Glucose (74-106) mg/dL POC Glucose 237 H 285 H (60-110) mg/dL Hemoglobin A1c (4.5-6.2) % Calcium (8.5-10.1) mg/dL Total Bilirubin (0.2-1.0) mg/dL AST (15-37) IU/L ALT (14-63) IU/L Alkaline Phosphatase (46-116) U/L Troponin I (0.000-0.056) ng/mL B-Natriuretic Peptide 127 H (<100) PG/ML Total Protein (6.4-8.2) g/dL Albumin (3.4-5.0) g/dL Globulin (2.6-4.0) g/dL Albumin/Globulin Ratio (0.9-1.6) TSH 3rd Generation (0.36-3.74) uIU/mL Urine Color Urine Appearance Urine pH (5.0-8.0) Ur Specific [place] (1.001-1.035) Urine Protein (NEGATIVE) mg/dL Urine Glucose (UA) (NEGATIVE) mg/dL Urine Ketones (NEGATIVE) mg/dL Urine Occult Blood (NEGATIVE) Urine Nitrite (NEGATIVE) Urine Bilirubin (NEGATIVE) Urine Urobilinogen (<2.0) EU/dL Ur Leukocyte Esterase (NEGATIVE) Urine RBC (0-2/HPF) Urine WBC (0-5/HPF) Ur Epithelial Cells (NONE-FEW) Urine Bacteria (NEGATIVE) 10/31/18 11/01/18 11/01/18 Range/Units 21:15 04:58 04:58 WBC 7.48 (4.0-11.0) K/uL RBC 5.85 (4.50-5.90) M/uL Hgb 18.7 H (13.0-17.0) g/dL Hct 58.0 H (38.0-50.0) % MCV 99.1 H (80.0-98.0) fL MCH 32.0 (27.0-32.0) pg MCHC 32.2 (31.0-37.0) g/dL RDW Std Deviation 55.6 (28.0-62.0) fl RDW Coeff of Sally 16 H (11.0-15.0) % Plt Count 149 L (150-400) K/uL MPV 9.60 (7.40-12.00) fL Neut % (Auto) (48.0-80.0) % Lymph % (Auto) (16.0-40.0) % [place] % (Auto) (0.0-15.0) % Eos % (Auto) (0.0-7.0) % Baso % (Auto) (0.0-1.5) % Neut # (Auto) (1.4-5.7) K/uL Lymph # (Auto) (0.6-2.4) K/uL [place] # (Auto) (0.0-0.8) K/uL Eos # (Auto) (0.0-0.7) K/uL Baso # (Auto) (0.0-0.1) K/uL Nucleated RBC % 0.0 /100WBC Nucleated RBCs # 0 K/uL D-Dimer, Quantitative (0.0-0.50) mg/L FEU Sodium (136-148) mmol/L Potassium (3.5-5.1) mmol/L Chloride (98-107) mmol/L Carbon Dioxide (21.0-32.0) mmol/L BUN (7.0-18.0) mg/dL Creatinine (0.8-1.3) mg/dL Est Cr Clr Drug Dosing Estimated GFR (MDRD) ml/min Glucose (74-106) mg/dL POC Glucose (60-110) mg/dL Hemoglobin A1c 9.8 H (4.5-6.2) % Calcium (8.5-10.1) mg/dL Total Bilirubin (0.2-1.0) mg/dL AST (15-37) IU/L ALT (14-63) IU/L Alkaline Phosphatase (46-116) U/L Troponin I (0.000-0.056) ng/mL B-Natriuretic Peptide (<100) PG/ML Total Protein (6.4-8.2) g/dL Albumin (3.4-5.0) g/dL Globulin (2.6-4.0) g/dL Albumin/Globulin Ratio (0.9-1.6) TSH 3rd Generation (0.36-3.74) uIU/mL Urine Color YELLOW Urine Appearance CLEAR Urine pH 7.5 (5.0-8.0) Ur Specific [place] <= 1.005 (1.001-1.035) Urine Protein NEGATIVE (NEGATIVE) mg/dL Urine Glucose (UA) >=1000 (NEGATIVE) mg/dL Urine Ketones NEGATIVE (NEGATIVE) mg/dL Urine Occult Blood NEGATIVE (NEGATIVE) Urine Nitrite NEGATIVE (NEGATIVE) Urine Bilirubin NEGATIVE (NEGATIVE) Urine Urobilinogen 0.2 (<2.0) EU/dL Ur Leukocyte Esterase NEGATIVE (NEGATIVE) Urine RBC 0-2 (0-2/HPF) Urine WBC NONE SEEN (0-5/HPF) Ur Epithelial Cells RARE (NONE-FEW) Urine Bacteria NOT SEEN (NEGATIVE) 11/01/18 11/01/18 11/01/18 Range/Units 04:58 06:03 12:19 WBC (4.0-11.0) K/uL RBC (4.50-5.90) M/uL Hgb (13.0-17.0) g/dL Hct (38.0-50.0) % MCV (80.0-98.0) fL MCH (27.0-32.0) pg MCHC (31.0-37.0) g/dL RDW Std Deviation (28.0-62.0) fl RDW Coeff of Sally (11.0-15.0) % Plt Count (150-400) K/uL MPV (7.40-12.00) fL Neut % (Auto) (48.0-80.0) % Lymph % (Auto) (16.0-40.0) % [place] % (Auto) (0.0-15.0) % Eos % (Auto) (0.0-7.0) % Baso % (Auto) (0.0-1.5) % Neut # (Auto) (1.4-5.7) K/uL Lymph # (Auto) (0.6-2.4) K/uL [place] # (Auto) (0.0-0.8) K/uL Eos # (Auto) (0.0-0.7) K/uL Baso # (Auto) (0.0-0.1) K/uL Nucleated RBC % /100WBC Nucleated RBCs # K/uL D-Dimer, Quantitative (0.0-0.50) mg/L FEU Sodium 133 L (136-148) mmol/L Potassium 4.0 (3.5-5.1) mmol/L Chloride 93 L (98-107) mmol/L Carbon Dioxide 40.6 H (21.0-32.0) mmol/L BUN 29 H (7.0-18.0) mg/dL Creatinine 1.0 (0.8-1.3) mg/dL Est Cr Clr Drug Dosing 89.22 Estimated GFR (MDRD) > 60.0 ml/min Glucose 242 H (74-106) mg/dL POC Glucose 227 H 223 H (60-110) mg/dL Hemoglobin A1c (4.5-6.2) % Calcium 9.0 (8.5-10.1) mg/dL Total Bilirubin 0.7 (0.2-1.0) mg/dL AST 20 (15-37) IU/L ALT 50 (14-63) IU/L Alkaline Phosphatase 71 (46-116) U/L Troponin I (0.000-0.056) ng/mL B-Natriuretic Peptide (<100) PG/ML Total Protein 7.0 (6.4-8.2) g/dL Albumin 3.4 (3.4-5.0) g/dL Globulin 3.6 (2.6-4.0) g/dL Albumin/Globulin Ratio 0.9 (0.9-1.6) TSH 3rd Generation (0.36-3.74) uIU/mL Urine Color Urine Appearance Urine pH (5.0-8.0) Ur Specific [place] (1.001-1.035) Urine Protein (NEGATIVE) mg/dL Urine Glucose (UA) (NEGATIVE) mg/dL Urine Ketones (NEGATIVE) mg/dL Urine Occult Blood (NEGATIVE) Urine Nitrite (NEGATIVE) Urine Bilirubin (NEGATIVE) Urine Urobilinogen (<2.0) EU/dL Ur Leukocyte Esterase (NEGATIVE) Urine RBC (0-2/HPF) Urine WBC (0-5/HPF) Ur Epithelial Cells (NONE-FEW) Urine Bacteria (NEGATIVE) Med Orders - Current: Current Medications Acetaminophen (Tylenol) 650 mg PO Q4H PRN PRN Reason: Pain (Mild 1-3)/fever Albuterol (Ventolin Hfa) 0 gm INH Q4H PRN PRN Reason: Wheezing Albuterol/Ipratropium (Duoneb 3.0-0.5 Mg/3 Ml) 3 ml NEB Q4HRRT PRN PRN Reason: Shortness Of Breath/wheezing Docusate Sodium (Colace) 100 mg PO BID PRN PRN Reason: Constipation Furosemide (Lasix) 40 - 80 mg PO DAILY [facility] Last Admin: 11/01/18 08:48 Dose: Not Given Furosemide (Lasix) 40 mg IVPUSH NOW ONE Stop: 11/01/18 16:01 Glimepiride (Amaryl) 2 mg PO BID [facility] Last Admin: 11/01/18 09:24 Dose: 2 mg Heparin Sodium (Porcine) (Heparin Sodium) 5,000 units SUBCUT Q8H [facility] Last Admin: 11/01/18 09:24 Dose: 5,000 units Insulin Aspart (Novolog) 0 unit SUBCUT TIDAC [facility]; Protocol Last Admin: 11/01/18 12:43 Dose: 4 units Lisinopril (Prinivil) 20 mg PO DAILY [facility] Last Admin: 11/01/18 09:29 Dose: 20 mg Ondansetron HCl (Zofran Odt) 4 mg PO Q6H PRN PRN Reason: nausea, able to take PO Oxycodone HCl (Oxycodone) 5 mg PO Q4H PRN PRN Reason: Pain (moderate 4-6) Simvastatin (Zocor) 20 mg PO BEDTIME [facility] Last Admin: 10/31/18 21:06 Dose: 20 mg Temazepam (Restoril) 15 mg PO BEDTIME PRN PRN Reason: Sleep Discontinued Medications Furosemide (Lasix) 40 mg IVPUSH NOW ONE Stop: 11/01/18 08:49 Last Admin: 11/01/18 09:21 Dose: 40 mg Sodium Chloride (Normal Saline) 1,000 mls @ 125 mls/hr IV ASDIRECTED [facility] Last Admin: 11/01/18 03:35 Dose: 125 mls/hr Insulin Aspart (Novolog) 4 unit SUBCUT ONETIME ONE Stop: 10/31/18 20:45 Last Admin: 10/31/18 21:06 Dose: 4 units - Exam Quality Assessment: Supplemental Oxygen General: Alert, Oriented HEENT: Pupils Equal, Pupils Reactive, EOMI, Mucous Membr. Moist/[place] Neck: Supple Lungs: Clear to Auscultation, Normal Respiratory Effort Cardiovascular: Regular Rate, Regular Rhythm GI/Abdominal Exam: Normal Bowel Sounds, Soft Extremities: Non-Tender, Other (trace edema) - Problem List Review Problem List Initiated/Reviewed/Updated: Yes - My Orders Last 24 Hours: My Active Orders 11/01/18 08:55 Echo Comp wo Cont [US] Urgent - Plan Plan:: Assessment: #1. T2DM #2. CHF #3. Hypoxia Plan: #1. Titrate O2 off as possible #2. 40mg IV Lasix BID #3. BMP tomorrow AM #4. Follow up on echocardiogram
[2018-11-01] MEDS: Simvastatin 20 MG Tab PO SCH (20:38)
[2018-11-02] MEDS: Heparin Sodium 5,000 Units/ML Vial SUBCUT SCH ×3 (03:15→18:46)
[2018-11-02 06:42] LABS: CHLORIDE,CL 93 mmol/L (98-107); SODIUM,NA 132 mmol/L (136-148)
[2018-11-02] MEDS: Insulin Aspart 100 Units/ML 3 ML Pen SUBCUT SCH ×3 (08:38→18:36)
[2018-11-02] MEDS: Furosemide 40 MG Tab PO SCH (08:40)
[2018-11-02] MEDS: Lisinopril 10 MG Tab PO SCH (08:40)
[2018-11-02] MEDS: Glimepiride 2 MG Tab PO SCH ×2 (08:42→20:10)
[2018-11-02] MEDS: Docusate Sodium 100 MG Cap PO PRN (15:49)
--- NOTE | 2018-11-02 16:26 | PCM.PN ---
- General Info Date of Service: 11/02/18 - Review of Systems Systems Review Comment:: feeling better, shortness of breath improving. - Patient Data Vitals - Most Recent: Last Vital Signs Temp 35.8 C 11/02/18 12:00 Pulse 96 11/02/18 12:00 Resp 18 11/02/18 12:00 BP 113/68 11/02/18 12:00 Pulse Ox 92 L 11/02/18 12:00 Weight - Most Recent: 117.565 kg I&O - Last 24 Hours: Intake & Output 11/02/18 11/02/18 11/02/18 06:59 14:59 22:59 Intake Total 540 1782 Output Total 3599 2500 Balance -3319 -965 Lab Results Last 24 Hours: Laboratory Results - last 24 hr 11/01/18 11/01/18 11/02/18 Range/Units 16:49 20:19 05:57 Sodium 132 L (136-148) mmol/L Potassium 4.2 (3.5-5.1) mmol/L Chloride 93 L (98-107) mmol/L Carbon Dioxide 36.7 H (21.0-32.0) mmol/L BUN 23 H (7.0-18.0) mg/dL Creatinine 0.9 (0.8-1.3) mg/dL Est Cr Clr Drug Dosing 99.14 mL/min Estimated GFR (MDRD) > 60.0 ml/min Glucose 233 H (74-106) mg/dL POC Glucose 274 H 194 H (60-110) mg/dL Calcium 8.6 (8.5-10.1) mg/dL 11/02/18 11/02/18 Range/Units 06:19 11:39 Sodium (136-148) mmol/L Potassium (3.5-5.1) mmol/L Chloride (98-107) mmol/L Carbon Dioxide (21.0-32.0) mmol/L BUN (7.0-18.0) mg/dL Creatinine (0.8-1.3) mg/dL Est Cr Clr Drug Dosing mL/min Estimated GFR (MDRD) ml/min Glucose (74-106) mg/dL POC Glucose 218 H 204 H (60-110) mg/dL Calcium (8.5-10.1) mg/dL Med Orders - Current: Current Medications Acetaminophen (Tylenol) 650 mg PO Q4H PRN PRN Reason: Pain (Mild 1-3)/fever Albuterol (Ventolin Hfa) 0 gm INH Q4H PRN PRN Reason: Wheezing Albuterol/Ipratropium (Duoneb 3.0-0.5 Mg/3 Ml) 3 ml NEB Q4HRRT PRN PRN Reason: Shortness Of Breath/wheezing Docusate Sodium (Colace) 100 mg PO BID PRN PRN Reason: Constipation Last Admin: 11/02/18 15:49 Dose: 100 mg Furosemide (Lasix) 40 - 80 mg PO DAILY [facility] Last Admin: 11/02/18 08:40 Dose: 40 mg Glimepiride (Amaryl) 2 mg PO BID [facility] Last Admin: 11/02/18 08:42 Dose: 2 mg Heparin Sodium (Porcine) (Heparin Sodium) 5,000 units SUBCUT Q8H [facility] Last Admin: 11/02/18 10:47 Dose: 5,000 units Insulin Aspart (Novolog) 0 unit SUBCUT TIDAC [facility]; Protocol Last Admin: 11/02/18 12:42 Dose: 4 units Lisinopril (Prinivil) 20 mg PO DAILY [facility] Last Admin: 11/02/18 08:40 Dose: 20 mg Ondansetron HCl (Zofran Odt) 4 mg PO Q6H PRN PRN Reason: nausea, able to take PO Oxycodone HCl (Oxycodone) 5 mg PO Q4H PRN PRN Reason: Pain (moderate 4-6) Simvastatin (Zocor) 20 mg PO BEDTIME [facility] Last Admin: 11/01/18 20:38 Dose: 20 mg Temazepam (Restoril) 15 mg PO BEDTIME PRN PRN Reason: Sleep Discontinued Medications Furosemide (Lasix) 40 mg IVPUSH NOW ONE Stop: 11/01/18 08:49 Last Admin: 11/01/18 09:21 Dose: 40 mg Furosemide (Lasix) 40 mg IVPUSH NOW ONE Stop: 11/01/18 16:01 Last Admin: 11/01/18 16:32 Dose: 40 mg Sodium Chloride (Normal Saline) 1,000 mls @ 125 mls/hr IV ASDIRECTED [facility] Last Admin: 11/01/18 03:35 Dose: 125 mls/hr Insulin Aspart (Novolog) 4 unit SUBCUT ONETIME ONE Stop: 10/31/18 20:45 Last Admin: 10/31/18 21:06 Dose: 4 units - Exam General: Alert, Oriented Neck: Supple Lungs: Clear to Auscultation, Normal Respiratory Effort Cardiovascular: Regular Rate, Regular Rhythm GI/Abdominal Exam: Normal Bowel Sounds, Soft, Non-Tender, No Distention Extremities: Non-Tender - Problem List Review Problem List Initiated/Reviewed/Updated: Yes - Plan Plan:: 52 yo male admitted for new onset CHF. We will continue lasix. Echocardiogram report pending. We will ween oxygen NC as tolerated.
[2018-11-02] MEDS: Simvastatin 20 MG Tab PO SCH (20:10)
[2018-11-03] MEDS: Heparin Sodium 5,000 Units/ML Vial SUBCUT SCH ×3 (03:00→17:39)
[2018-11-03 06:28] LABS: CHLORIDE,CL 92 mmol/L (98-107); SODIUM,NA 132 mmol/L (136-148)
[2018-11-03] MEDS: Insulin Aspart 100 Units/ML 3 ML Pen SUBCUT SCH ×3 (08:24→17:41)
[2018-11-03] MEDS: Lisinopril 10 MG Tab PO SCH (08:25)
[2018-11-03] MEDS: Furosemide 40 MG Tab PO SCH (08:26)
[2018-11-03] MEDS: Docusate Sodium 100 MG Cap PO PRN (08:26)
[2018-11-03] MEDS: Glimepiride 2 MG Tab PO SCH ×2 (08:27→20:03)
--- NOTE | 2018-11-03 13:50 | PCM.PN ---
- General Info Date of Service: 11/03/18 - Review of Systems Systems Review Comment:: breathing has improved. - Patient Data Vitals - Most Recent: Last Vital Signs Temp 35.7 C 11/03/18 08:00 Pulse 94 11/03/18 08:00 Resp 18 11/03/18 08:00 BP 109/65 11/03/18 08:25 Pulse Ox 94 L 11/03/18 08:00 Weight - Most Recent: 117.072 kg I&O - Last 24 Hours: Intake & Output 11/02/18 11/03/18 11/03/18 22:59 06:59 14:59 Intake Total 1782 1900 Output Total 2500 2550 Balance -718 650 Lab Results Last 24 Hours: Laboratory Results - last 24 hr 11/02/18 11/02/18 11/03/18 Range/Units 17:16 21:30 05:59 Sodium 132 L (136-148) mmol/L Potassium 5.1 (3.5-5.1) mmol/L Chloride 92 L (98-107) mmol/L Carbon Dioxide 36.1 H (21.0-32.0) mmol/L BUN 23 H (7.0-18.0) mg/dL Creatinine 1.0 (0.8-1.3) mg/dL Est Cr Clr Drug Dosing 89.22 mL/min Estimated GFR (MDRD) > 60.0 ml/min Glucose 246 H (74-106) mg/dL POC Glucose 242 H 267 H (60-110) mg/dL Calcium 8.8 (8.5-10.1) mg/dL 11/03/18 11/03/18 Range/Units 06:00 11:53 Sodium (136-148) mmol/L Potassium (3.5-5.1) mmol/L Chloride (98-107) mmol/L Carbon Dioxide (21.0-32.0) mmol/L BUN (7.0-18.0) mg/dL Creatinine (0.8-1.3) mg/dL Est Cr Clr Drug Dosing mL/min Estimated GFR (MDRD) ml/min Glucose (74-106) mg/dL POC Glucose 231 H 206 H (60-110) mg/dL Calcium (8.5-10.1) mg/dL Med Orders - Current: Current Medications Acetaminophen (Tylenol) 650 mg PO Q4H PRN PRN Reason: Pain (Mild 1-3)/fever Albuterol (Ventolin Hfa) 0 gm INH Q4H PRN PRN Reason: Wheezing Albuterol/Ipratropium (Duoneb 3.0-0.5 Mg/3 Ml) 3 ml NEB Q4HRRT PRN PRN Reason: Shortness Of Breath/wheezing Docusate Sodium (Colace) 100 mg PO BID PRN PRN Reason: Constipation Last Admin: 11/03/18 08:26 Dose: 100 mg Furosemide (Lasix) 40 mg IVPUSH BIDDIURETIC [facility] Glimepiride (Amaryl) 2 mg PO BID [facility] Last Admin: 11/03/18 08:27 Dose: 2 mg Heparin Sodium (Porcine) (Heparin Sodium) 5,000 units SUBCUT Q8H [facility] Last Admin: 11/03/18 10:38 Dose: 5,000 units Insulin Aspart (Novolog) 0 unit SUBCUT TIDAC [facility]; Protocol Last Admin: 11/03/18 12:25 Dose: 4 units Insulin Glargine (Lantus Solostar) 10 units SUBCUT BEDTIME [facility] Lisinopril (Prinivil) 20 mg PO DAILY [facility] Last Admin: 11/03/18 08:25 Dose: 20 mg Ondansetron HCl (Zofran Odt) 4 mg PO Q6H PRN PRN Reason: nausea, able to take PO Oxycodone HCl (Oxycodone) 5 mg PO Q4H PRN PRN Reason: Pain (moderate 4-6) Simvastatin (Zocor) 20 mg PO BEDTIME [facility] Last Admin: 11/02/18 20:10 Dose: 20 mg Temazepam (Restoril) 15 mg PO BEDTIME PRN PRN Reason: Sleep Discontinued Medications Furosemide (Lasix) 40 - 80 mg PO DAILY [facility] Last Admin: 11/03/18 08:26 Dose: 80 mg Furosemide (Lasix) 40 mg IVPUSH NOW ONE Stop: 11/01/18 08:49 Last Admin: 11/01/18 09:21 Dose: 40 mg Furosemide (Lasix) 40 mg IVPUSH NOW ONE Stop: 11/01/18 16:01 Last Admin: 11/01/18 16:32 Dose: 40 mg Sodium Chloride (Normal Saline) 1,000 mls @ 125 mls/hr IV ASDIRECTED [facility] Last Admin: 11/01/18 03:35 Dose: 125 mls/hr Insulin Aspart (Novolog) 4 unit SUBCUT ONETIME ONE Stop: 10/31/18 20:45 Last Admin: 10/31/18 21:06 Dose: 4 units - Exam General: Alert, Oriented Lungs: Clear to Auscultation, Normal Respiratory Effort Cardiovascular: Regular Rate, Regular Rhythm GI/Abdominal Exam: Normal Bowel Sounds, Soft, No Organomegaly Extremities: Pedal Edema (+1 edema) Skin: Warm, Dry, Intact - Problem List Review Problem List Initiated/Reviewed/Updated: Yes - My Orders Last 24 Hours: My Active Orders 11/03/18 14:00 Furosemide [Lasix] 40 mg IVPUSH BIDDIURETIC 11/03/18 21:00 Insulin Glarg,Human.Rec.Analog [LantUS Solostar] 10 units SUBCUT BEDTIME 11/03/18 Dinner Fluid Restriction [DIET] - Plan Plan:: 52 yo male admitted for new onset CHF. CHF: We will continue lasix. Echocardiogram report pending. We will ween oxygen NC as tolerated as he is still requirng 2 liters O2, fluid restrict 2 liters DM: will start lantus 10 units at night, continue ssi novolog premeals.
[2018-11-03] MEDS: Furosemide 40 MG/4 ML VIAL IVPUSH SCH (14:48)
[2018-11-03] MEDS: Simvastatin 20 MG Tab PO SCH (20:03)
[2018-11-03] MEDS ORDERED: Insulin Glargine,Human Rec. Analog 100 Units/ML 3 ML Pen SUBCUT SCH (21:00)
[2018-11-04] MEDS: Heparin Sodium 5,000 Units/ML Vial SUBCUT SCH ×2 (03:15→10:41)
[2018-11-04 06:41] LABS: CHLORIDE,CL 93 mmol/L (98-107); SODIUM,NA 131 mmol/L (136-148)
[2018-11-04] MEDS: Furosemide 40 MG/4 ML VIAL IVPUSH SCH (08:38)
[2018-11-04] MEDS: Insulin Aspart 100 Units/ML 3 ML Pen SUBCUT SCH ×2 (08:46→11:34)
[2018-11-04] MEDS: Lisinopril 10 MG Tab PO SCH (08:49)
[2018-11-04] MEDS: Glimepiride 2 MG Tab PO SCH (08:50)
--- NOTE | 2018-11-04 10:45 | PCM.DCSUM1 ---
Discharge Summary - Hospital Course Free Text/Narrative:: Admission date: 10/31/2018 Discharge date: 11/04/2018 Admission diagnosis: #1. CHF exacerbation #2. Hypoxia #3. Hyperglycemia #4. Poorly controlled T2DM Discharge diagnosis: #1. CHF exacerbation - resolved #2. Hypoxia - resolved #3. Hyperglycemia - resolved #4. Poorly controlled T2DM #5. CHF s/p pending echocardiogram results Hospital course: 52M admitted for hypoxia, poor glycemic control found to be fluid overloaded. Patient was fluid restricted and placed on IV lasix for diuresis. Echo was obtained and is pending. DM educator was consulted. Patient is to start daily 15 units basaglar. His T2DM meds were discontinued aside from metformin. Encouraged to exercise, restrict fluid intake. Daily weights. Will f/ u with his PCP. - Discharge Data Discharge Date: 11/04/18 Discharge Disposition: Home, Self-Care 01 Condition: Good - Patient Summary/Data Consults: Consultations 10/31/18 18:13 Consult to Diabetic Nurse Specialist [CONS] Routine - Patient Instructions Diet: Heart Healthy Diet, Fluid Restriction Driving: May Drive Today Showering/Bathing: May Shower Other/Special Instructions: Daily weights, notify provider if gaining >3lbs in a week - Discharge Plan Prescriptions/Med Rec: Insulin Glargine,Hum.Rec.Anlog [Basaglar Kwikpen U-100] 15 unit SQ DAILY #1 insuln.pen Home Medications: Home Meds Lisinopril [Prinivil] 20 mg PO DAILY 11/15/15 [History] Simvastatin [Zocor] 20 mg PO BEDTIME 11/15/15 [History] Spironolactone [Aldactone] 25 mg PO DAILY 11/15/15 [History] metFORMIN HCl [Metformin HCl] 1,000 tab PO BIDMEALS 11/15/15 [History] Albuterol Sulfate [Proair Hfa] 1 puff INH Q4HR PRN 10/31/18 [History] Aspirin [Lo-Dose Aspirin EC] 81 mg PO DAILY 10/31/18 [History] Cyanocobalamin (Vitamin B-12) [Vitamin B-12] 1 tab PO DAILY 10/31/18 [History] Furosemide [Lasix] 40 - 80 mg PO DAILY 10/31/18 [History] Insulin Glargine,Hum.Rec.Anlog [Basaglar Kwikpen U-100] 15 unit SQ DAILY #1 insuln.pen 11/04/18 [Rx] Patient Handouts: Type 2 Diabetes Mellitus, Diagnosis, Adult, Hypoxemia, Heart Failure, [id number]-[id number], Heart-Healthy Eating Plan Referrals: Erasto Ovalles MD [Primary Care Provider] - 11/13/18 2:45 pm - Discharge Summary/Plan Comment DC Time >30 min.: No - Patient Data Vitals - Most Recent: Last Vital Signs Temp 36.0 C 11/04/18 04:00 Pulse 96 11/04/18 04:00 Resp 16 11/04/18 04:00 BP 110/73 11/04/18 08:49 Pulse Ox 93 L 11/04/18 10:05 Weight - Most Recent: 115.847 kg I&O - Last 24 hours: Intake & Output 11/03/18 11/04/18 11/04/18 22:59 06:59 14:59 Intake Total 1400 0 Output Total 1950 1695 Balance -550 -1695 Lab Results - Last 24 hrs: Laboratory Results - last 24 hr 11/03/18 11/03/18 11/03/18 Range/Units 11:53 17:30 21:07 WBC (4.0-11.0) K/uL RBC (4.50-5.90) M/uL Hgb (13.0-17.0) g/dL Hct (38.0-50.0) % MCV (80.0-98.0) fL MCH (27.0-32.0) pg MCHC (31.0-37.0) g/dL RDW Std Deviation (28.0-62.0) fl RDW Coeff of Sally (11.0-15.0) % Plt Count (150-400) K/uL MPV (7.40-12.00) fL Neut % (Auto) (48.0-80.0) % Lymph % (Auto) (16.0-40.0) % [place] % (Auto) (0.0-15.0) % Eos % (Auto) (0.0-7.0) % Baso % (Auto) (0.0-1.5) % Neut # (Auto) (1.4-5.7) K/uL Lymph # (Auto) (0.6-2.4) K/uL [place] # (Auto) (0.0-0.8) K/uL Eos # (Auto) (0.0-0.7) K/uL Baso # (Auto) (0.0-0.1) K/uL Nucleated RBC % /100WBC Nucleated RBCs # K/uL Sodium (136-148) mmol/L Potassium (3.5-5.1) mmol/L Chloride (98-107) mmol/L Carbon Dioxide (21.0-32.0) mmol/L BUN (7.0-18.0) mg/dL Creatinine (0.8-1.3) mg/dL Est Cr Clr Drug Dosing mL/min Estimated GFR (MDRD) ml/min Glucose (74-106) mg/dL POC Glucose 206 H 197 H 235 H (60-110) mg/dL Calcium (8.5-10.1) mg/dL 11/04/18 11/04/18 11/04/18 Range/Units 05:57 05:57 06:22 WBC 8.69 (4.0-11.0) K/uL RBC 5.82 (4.50-5.90) M/uL Hgb 19.1 H (13.0-17.0) g/dL Hct 57.9 H (38.0-50.0) % MCV 99.5 H (80.0-98.0) fL MCH 32.8 H (27.0-32.0) pg MCHC 33.0 (31.0-37.0) g/dL RDW Std Deviation 55.1 (28.0-62.0) fl RDW Coeff of Sally 15 (11.0-15.0) % Plt Count 135 L (150-400) K/uL MPV 10.10 (7.40-12.00) fL Neut % (Auto) 65.8 (48.0-80.0) % Lymph % (Auto) 23.0 (16.0-40.0) % [place] % (Auto) 9.4 (0.0-15.0) % Eos % (Auto) 1.7 (0.0-7.0) % Baso % (Auto) 0.1 (0.0-1.5) % Neut # (Auto) 5.7 (1.4-5.7) K/uL Lymph # (Auto) 2.0 (0.6-2.4) K/uL [place] # (Auto) 0.8 (0.0-0.8) K/uL Eos # (Auto) 0.2 (0.0-0.7) K/uL Baso # (Auto) 0.0 (0.0-0.1) K/uL Nucleated RBC % 0.0 /100WBC Nucleated RBCs # 0 K/uL Sodium 131 L (136-148) mmol/L Potassium 4.8 (3.5-5.1) mmol/L Chloride 93 L (98-107) mmol/L Carbon Dioxide 32.5 H (21.0-32.0) mmol/L BUN 29 H (7.0-18.0) mg/dL Creatinine 0.8 (0.8-1.3) mg/dL Est Cr Clr Drug Dosing 111.53 mL/min Estimated GFR (MDRD) > 60.0 ml/min Glucose 244 H (74-106) mg/dL POC Glucose 221 H (60-110) mg/dL Calcium 8.7 (8.5-10.1) mg/dL Med Orders - Current: Current Medications Acetaminophen (Tylenol) 650 mg PO Q4H PRN PRN Reason: Pain (Mild 1-3)/fever Albuterol (Ventolin Hfa) 0 gm INH Q4H PRN PRN Reason: Wheezing Albuterol/Ipratropium (Duoneb 3.0-0.5 Mg/3 Ml) 3 ml NEB Q4HRRT PRN PRN Reason: Shortness Of Breath/wheezing Docusate Sodium (Colace) 100 mg PO BID PRN PRN Reason: Constipation Last Admin: 11/03/18 08:26 Dose: 100 mg Furosemide (Lasix) 40 mg IVPUSH BIDDIURETIC [facility] Last Admin: 11/04/18 08:38 Dose: 40 mg Glimepiride (Amaryl) 2 mg PO BID [facility] Last Admin: 11/04/18 08:50 Dose: 2 mg Heparin Sodium (Porcine) (Heparin Sodium) 5,000 units SUBCUT Q8H [facility] Last Admin: 11/04/18 10:41 Dose: Not Given Insulin Aspart (Novolog) 0 unit SUBCUT TIDAC [facility]; Protocol Last Admin: 11/04/18 08:46 Dose: 4 units Insulin Glargine (Lantus Solostar) 10 units SUBCUT BEDTIME [facility] Last Admin: 11/03/18 20:04 Dose: 10 units Lisinopril (Prinivil) 20 mg PO DAILY [facility] Last Admin: 11/04/18 08:49 Dose: 20 mg Ondansetron HCl (Zofran Odt) 4 mg PO Q6H PRN PRN Reason: nausea, able to take PO Oxycodone HCl (Oxycodone) 5 mg PO Q4H PRN PRN Reason: Pain (moderate 4-6) Simvastatin (Zocor) 20 mg PO BEDTIME [facility] Last Admin: 11/03/18 20:03 Dose: 20 mg Temazepam (Restoril) 15 mg PO BEDTIME PRN PRN Reason: Sleep Discontinued Medications Furosemide (Lasix) 40 - 80 mg PO DAILY [facility] Last Admin: 11/03/18 08:26 Dose: 80 mg Furosemide (Lasix) 40 mg IVPUSH NOW ONE Stop: 11/01/18 08:49 Last Admin: 11/01/18 09:21 Dose: 40 mg Furosemide (Lasix) 40 mg IVPUSH NOW ONE Stop: 11/01/18 16:01 Last Admin: 11/01/18 16:32 Dose: 40 mg Sodium Chloride (Normal Saline) 1,000 mls @ 125 mls/hr IV ASDIRECTED [facility] Last Admin: 11/01/18 03:35 Dose: 125 mls/hr Insulin Aspart (Novolog) 4 unit SUBCUT ONETIME ONE Stop: 10/31/18 20:45 Last Admin: 10/31/18 21:06 Dose: 4 units
[2018-11-04 11:40] VITALS: BP 99/61
--- NOTE | 2018-11-06 15:51 | ECHO ---
The echocardiogram report can be seen in this patient EMR (Electronic Medical Record) in the REPORTS section. The echocardiogram report has also been scanned into PACS and can be seen there as well. [place]
== END 2018-11-04 11:25 | disposition home or self-care (01) | DRG 194 ==
LOC: MW.CHFP 14:57 → MW.MS 16:24 → OBSVTOIN 11-03 13:54 → MW.MS 11-03 14:19
PROVIDERS: ADMIT Internal Medicine; ATTEND Internal Medicine
DX: I11.0 Hypertensive heart disease with heart failure (principal); I50.9 Heart failure, unspecified; E11.65 Type 2 diabetes mellitus with hyperglycemia; H54.7 Unspecified visual loss; E78.00 Pure hypercholesterolemia, unspecified; E66.2 Morbid (severe) obesity with alveolar hypoventilation; Z68.36 Body mass index [BMI] 36.0-36.9, adult; Z79.82 Long term (current) use of aspirin; Z79.84 Long term (current) use of oral hypoglycemic drugs; Z79.899 Other long term (current) drug therapy; I25.2 Old myocardial infarction
CPT/HCPCS: 36415; 71046; 71046-26; 80048; 80053; 81001; 82962; 83036; 83880; 84443; 84484; 85025; 85027; 85379; 93005; 93306; 96361; 96372; 96374; 96376; A9270-GY; G0378; G0379; J1644; J1815-GY; J1940; J7040

== ENCOUNTER 2018-12-25 10:33 | Emergency (ER) | payer BC ==
[2018-12-25 10:41] VITALS: BP 147/92
[2018-12-25] MEDS ORDERED: Diphtheria,Pertussis(Acell),Tetanus Vaccine 0.5 ML Syringe IM ONE (10:48)
--- NOTE | 2018-12-25 10:48 | EDM.PDOC ---
ED HPI GENERAL MEDICAL PROBLEM - General Chief Complaint: Laceration Stated Complaint: NEEDS STITCHES LEFT THUMB AND INDEX Time Seen by Provider: 12/25/18 10:43 - History of Present Illness INITIAL COMMENTS - FREE TEXT/NARRATIVE: 53 y/o male here with left laceration at base of thumb. Apparently he was working with a hay blade and it accidentally got his left thumb. He states he can move his thumb and other digits. Overall, sensation intact except for tip of thumb area. 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 Not up-to-date with tetanus. L thumb Pain Score (Numeric/FACES): 2 - Related Data Allergies Allergy/AdvReac Type Severity Reaction Status Date / Time No Known Allergies Allergy Verified 12/25/18 10:42 Home Meds: Home Meds Lisinopril [Prinivil] 20 mg PO DAILY 11/15/15 [History] Simvastatin [Zocor] 20 mg PO BEDTIME 11/15/15 [History] Spironolactone [Aldactone] 25 mg PO DAILY 11/15/15 [History] metFORMIN HCl [Metformin HCl] 1,000 tab PO BIDMEALS 11/15/15 [History] Albuterol Sulfate [Proair Hfa] 1 puff INH Q4HR PRN 10/31/18 [History] Aspirin [Lo-Dose Aspirin EC] 81 mg PO DAILY 10/31/18 [History] Cyanocobalamin (Vitamin B-12) [Vitamin B-12] 1 tab PO DAILY 10/31/18 [History] Furosemide [Lasix] 40 mg PO DAILY 10/31/18 [History] Insulin Glargine,Hum.Rec.Anlog [Basaglar Kwikpen U-100] 40 unit SQ DAILY [History] Past Medical History HEENT History: Reports: Impaired Vision Cardiovascular History: Reports: High Cholesterol, Heart Failure, Hypertension, [place] Respiratory History: Reports: Bronchitis, Recurrent, Pneumonia, Recurrent Gastrointestinal History: Reports: None Genitourinary History: Reports: None Musculoskeletal History: Reports: None Neurological History: Reports: None Psychiatric History: Reports: None Endocrine/Metabolic History: Reports: Diabetes, Type II, Obesity/BMI 30+ Hematologic History: Reports: None Immunologic History: Reports: None Oncologic (Cancer) History: Reports: None Dermatologic History: Reports: None - Infectious Disease History Infectious Disease History: Reports: None - Past Surgical History Head Surgeries/Procedures: Reports: None Respiratory Surgical History: Reports: None Male Surgical History: Reports: Penile Surgery Musculoskeletal Surgical History: Reports: Arthroscopic Knee, Shoulder Surgery Social & Family History - Family History Family Medical History: Noncontributory - Caffeine Use Caffeine Use: Reports: Coffee - Living Situation & Occupation Living situation: Reports: Occupation: Employed ED ROS GENERAL - Review of Systems Review Of Systems: ROS reveals no pertinent complaints other than HPI. ED EXAM, SKIN/RASH Exam: See Below General Appearance: Alert, WD/WN, No Apparent Distress Respiratory/Chest: No Respiratory Distress Extremities: Other (left hand- there is a wound measuring approximately 2 inches in lenght and 1 cm in depth. There is some debris in the wound. He states he washed wound. Thumb feels warm, sensation and strength intact. Range of motion intact.) Course - Vital Signs Text/Narrative:: cleaned wound. used lidocaine 1% for anesthesia. Applied 5 sutured Ethilon 4-0. Last Recorded V/S: Last Vital Signs Temp 36.7 C 12/25/18 10:37 Pulse 92 12/25/18 10:37 Resp 18 12/25/18 10:37 BP 147/92 H 12/25/18 10:37 Pulse Ox 93 L 12/25/18 10:37 - Orders/Labs/Meds Orders: Active Orders 24 hr Category Date Time Status Vaccines to be Administered [RC] PER UNIT ROUTINE Care 12/25/18 10:48 Active Meds: Medications Discontinued Medications Generic Name Dose Route Start Last Admin Trade Name Freq PRN Reason Stop Dose Admin Bacitracin 1 dose 12/25/18 11:28 Bacitracin Oint 1 Gm TOP 12/25/18 11:29 ONETIME ONE Diphtheria/Tetanus/Acell Pertussis 0.5 ml 12/25/18 10:48 12/25/18 10:58 Adacel IM 12/25/18 10:49 0.5 ml .ONCE ONE Administration Lidocaine HCl 5 ml 12/25/18 10:52 12/25/18 10:59 Xylocaine-Mpf 1% INJECT 12/25/18 10:53 5 ml ONETIME ONE Administration Departure - Departure Time of Disposition: 11:30 Disposition: Home, Self-Care 01 Clinical Impression: Laceration - Discharge Information *PRESCRIPTION DRUG MONITORING PROGRAM REVIEWED*: Not Applicable *COPY OF PRESCRIPTION DRUG MONITORING REPORT IN PATIENT CHRISTINA: Not Applicable Instructions: Laceration Care, Adult, [id number] Referrals: Erasto Ovalles MD [Primary Care Provider] - Forms: ED Department Discharge Additional Instructions: The following information is given to patients seen in the emergency department who are being discharged to home. This information is to outline your options for follow-up care. We provide all patients seen in our emergency department with a follow-up referral. The need for follow-up, as well as the timing and circumstances, are variable depending upon the specifics of your emergency department visit. If you don't have a primary care physician on staff, we will provide you with a referral. We always advise you to contact your personal physician following an emergency department visit to inform them of the circumstance of the visit and for follow-up with them and/or the need for any referrals to a consulting specialist. The emergency department will also refer you to a specialist when appropriate. This referral assures that you have the opportunity for follow-up care with a specialist. All of these measure are taken in an effort to provide you with optimal care, which includes your follow-up. Under all circumstances we always encourage you to contact your private physician who remains a resource for coordinating your care. When calling for follow-up care, please make the office aware that this follow-up is from your recent emergency room visit. If for any reason you are refused follow-up, please contact the [facility] Emergency Department at and asked to speak to the emergency department charge nurse. Return in 7 days for suture removal. Seek medical attention if fever, swelling, pain, discharge from wound. - My Orders Last 24 Hours: My Active Orders 12/25/18 10:48 Vaccines to be Administered [RC] PER UNIT ROUTINE - Assessment/Plan Last 24 Hours: My Active Orders 12/25/18 10:48 Vaccines to be Administered [RC] PER UNIT ROUTINE
[2018-12-25] MEDS ORDERED: Bacitracin Oint 1 GM U/D Packet TOP ONE (11:28)
== END 2018-12-25 11:47 | disposition home or self-care (01) ==
LOC: MW.ED 10:33
DX: S61.012A Laceration without foreign body of left thumb without damage to nail, initial encounter (principal); E11.9 Type 2 diabetes mellitus without complications; Z79.4 Long term (current) use of insulin; I11.0 Hypertensive heart disease with heart failure; I50.9 Heart failure, unspecified; E78.00 Pure hypercholesterolemia, unspecified; Z23 Encounter for immunization; Z79.899 Other long term (current) drug therapy; Z79.82 Long term (current) use of aspirin; W26.8XXA Contact with other sharp object(s), not elsewhere classified, initial encounter
CPT/HCPCS: 12002; 90471; 90715; 99282; J2001